=== PATIENT | male | born 1990 | race Hispanic/Latino ===

== ENCOUNTER 2022-05-15 23:59 | Emergency (ER) | payer OTHER ==
[~2022-05-15] VITALS: Ht 167.6 cm; Wt 90.7 kg
[2022-05-16] MEDS ORDERED: IBUP-2071 PO (00:23)
[2022-05-16] MEDS ORDERED: BENZ-39 PO (00:23)
[2022-05-16] MEDS ORDERED: ACETAMINOPHEN WITH CODEINE 1 TAB TAB PO ONE (00:30)
[2022-05-16 01:15] VITALS: BP 136/86
== END 2022-05-16 01:38 | disposition home or self-care (01) ==
LOC: EDH 23:59
DX: S20.212A Contusion of left front wall of thorax, initial encounter (principal); Z79.1 Long term (current) use of non-steroidal anti-inflammatories (NSAID); X58.XXXA Exposure to other specified factors, initial encounter; Y93.89 Activity, other specified; Y92.89 Other specified places as the place of occurrence of the external cause; Y99.8 Other external cause status
CPT/HCPCS: 71101